=== PATIENT | male | born 1970 | race Caucasian/White ===

== ENCOUNTER 2019-09-09 14:47 | Emergency (ER) | payer OTHER ==
[~2019-09-09] VITALS: Ht 177.8 cm; Wt 105.5 kg
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
[2019-09-09 15:41] VITALS: BP 154/101
== END 2019-09-09 15:41 | disposition home or self-care (01) ==
LOC: ER 14:47
DX: S46.812A Strain of other muscles, fascia and tendons at shoulder and upper arm level, left arm, initial encounter (principal); R60.0 Localized edema; V98.8XXA Other specified transport accidents, initial encounter; Y93.89 Activity, other specified; Y92.413 State road as the place of occurrence of the external cause; Y99.8 Other external cause status
CPT/HCPCS: 99281